=== PATIENT | male | born 1985 | race Hispanic/Latino ===

== ENCOUNTER 2016-11-13 01:13 | Day surgery (SDC) | payer OTHER ==
[~2016-11-13] VITALS: Ht 175.3 cm; Wt 88.3 kg
[2016-11-13] MEDS ORDERED: ONDANSETRON 4MG/2ML VIAL (J2405) IV ONE ×2 (01:45→12:00)
[2016-11-13] MEDS ORDERED: MORPHINE 4 MG/ML 1ML SYRINGE IV ONE (01:45)
[2016-11-13] MEDS ORDERED: IBUPOTC PO (02:30)
[2016-11-13 03:19] LABS: BASO % 0.2 % (0.0-1.0); EOS # 0.1 K/mm3 (0.0-0.50); EOS % 1.6 % (0.0-3.0); LARGE UNSTAINED CELL # 0.1 K/mm3 (0.0-0.4); LARGE UNSTAINED CELL % 0.8 % (0.0-4.0); LYMPH # 1.3 K/mm3 (1.5-6.5); LYMPH % 14.1 % (24.0-44.0); MEAN CORPUSCULAR HEMOGLOBIN 29.7 pg (27.0-33.0); MEAN CORPUSCULAR HGB CONC 31.9 g/dl (32.0-36.5); MEAN CORPUSCULAR VOLUME 93.2 fl (80.0-96.0); MONO # 0.4 K/mm3 (0.0-0.8); MONO % 4.9 % (0.0-5.0); NEUTROPHILS # 6.7 K/mm3 (1.8-7.7); NEUTROPHILS % 78.4 % (36.0-66.0); PLATELET COUNT, AUTOMATED 179 k/mm3 (150-450); RED CELL DISTRIBUTION WIDTH 12.7 % (11.5-14.5); WHITE BLOOD COUNT 8.6 K/mm3 (4.0-10.0)
[2016-11-13 03:25] LABS: INR 1.2
[2016-11-13 03:40] LABS: ANION GAP 7 MEQ/L (8-16); BLOOD UREA NITROGEN 11 MG/DL (7-18); CALCIUM LEVEL 8.3 MG/DL (8.5-10.1); CARBON DIOXIDE LEVEL 27 MEQ/L (21-32); CHLORIDE LEVEL 108 MEQ/L (98-107); CREATININE FOR GFR 0.96 MG/DL (0.70-1.30); GLOMERULAR FILTRATION RATE > 60.0 (>60); GLUCOSE, FASTING 108 MG/DL (70-105); SODIUM LEVEL 142 MEQ/L (136-145)
[2016-11-13 04:45] VITALS: BP 105/50
[2016-11-13] MEDS ORDERED: PERCOCET 5MG/325MG TAB PO ONE ×2 (06:30→17:15)
[2016-11-13] MEDS ORDERED: PERC5TAB6 PO (07:37)
[2016-11-13] MEDS ORDERED: ASPI325T PO (07:37)
[2016-11-13] MEDS ORDERED: BUPIVACAINE/EPIN 0.25% 30 ML VIAL As Ordered ONE (07:40)
--- NOTE | 2016-11-13 08:49 | REP ---
Clinical: Trauma. Technique: AP and lateral views of the left tibia / fibula. Findings: Acute spiral nondisplaced fracture of the distal fibular shaft is appreciated along with moderate diffuse swelling at the ankle and widening of the medial ankle mortise and joint space suggesting associated ligamentous injuries. Impression: Fractured distal fibular shaft. Ankle swelling and widening to the medial joint space. Signed by Alli Roberson MD 11/13/2016 08:41 A
[2016-11-13] MEDS ORDERED: MIDAZOLAM INJ 2 MG/2 ML VIAL (J2250) As Ordered ONE (08:55)
[2016-11-13] MEDS ORDERED: PROPOFOL 200 MG/20 ML VIAL As Ordered ONE (08:55)
[2016-11-13] MEDS ORDERED: ePHEDrine SULFATE 25 MG/5 ML(5MG/ML) SYRINGE As Ordered ONE (08:55)
[2016-11-13] MEDS ORDERED: LIDOCAINE 2% INJ 100 MG/5 ML SDV (FOR ANES.) As Ordered ONE (08:55)
[2016-11-13] MEDS ORDERED: fentaNYL 250 MCG/5 ML INJECTION (J3010) As Ordered ONE (08:55)
[2016-11-13] MEDS ORDERED: dexameTHASONE 4 MG/ML 1ML VIAL (J1100) As Ordered ONE (08:55)
[2016-11-13] MEDS ORDERED: ONDANSETRON 4MG/2ML VIAL (J2405) As Ordered ONE (09:08)
--- NOTE | 2016-11-13 09:18 | REP ---
Clinical: Trauma. Technique: AP, lateral, bilateral oblique views of the left foot. Findings: There is an oblique fracture of the distal fibular shaft. The foot appears intact without further acute fracture or dislocation. Impression: Oblique fracture of the distal fibula. Foot appears intact. Signed by Alli Roberson MD 11/13/2016 09:10 A
--- NOTE | 2016-11-13 10:15 | REP ---
Clinical: Fracture. Technique: Intraoperative fluoroscopic imaging. Findings: Two intraoperative fluoroscopic images demonstrate the patient to be status post open reduction and fixation for distal fibular shaft fracture. Total fluoroscopic time 1 minute 3 seconds. Impression: Status post open reduction and fixation for distal fibular shaft fracture Signed by Alli Roberson MD 11/13/2016 10:07 A
[2016-11-13] MEDS ORDERED: HYDROmorphone HCL 1 MG/ML SYRINGE (J1170) As Ordered ONE (10:36)
[2016-11-13] MEDS: HYDROmorphone HCL 1 MG/ML SYRINGE (J1170) IV PRN ×5 (10:37→10:57)
[2016-11-13] MEDS ORDERED: PERCOCET 5MG/325MG TAB PO PRN (10:45)
[2016-11-13] MEDS ORDERED: ONDANSETRON 4MG/2ML VIAL (J2405) IV PRN (10:45)
[2016-11-13] MEDS ORDERED: fentaNYL 100 MCG/2 ML INJECTION (J3010) IV PRN (10:45)
[2016-11-13] MEDS ORDERED: LR 1,000 ML IV SCH (10:45)
--- NOTE | 2016-11-13 10:58 | REP ---
Clinical: Status post fixation. Technique: Portable AP and lateral views of the left ankle. Findings: The patient is status post open reduction and fixation for distal fibular shaft fracture. Impression: Status post open reduction and fixation for distal fibular shaft fracture. Signed by Alli Roberson MD 11/13/2016 10:50 A
[2016-11-13] MEDS ORDERED: PERCOCET 5MG/325MG TAB As Ordered ONE (11:00)
[2016-11-13] MEDS ORDERED: ONDANSETRON 4 MG TAB (S0181) PO PRN (12:00)
[2016-11-13 12:06] VITALS: BP 128/68
[2016-11-13 12:49] VITALS: BP 103/54
[2016-11-13 13:20] VITALS: BP 107/58
--- NOTE | 2016-11-13 14:11 | RO ---
DATE OF PROCEDURE: 11/13/2016 PREPROCEDURE DIAGNOSIS: Left ankle fracture. POSTPROCEDURE DIAGNOSIS: Left ankle fracture. PROCEDURE: Left ankle open reduction internal fixation. SURGEON: Stef Iniguez MD HEAD SHIPPER: DERRICK Martin ANESTHESIA: General endotracheal anesthesia. TOTAL TOURNIQUET TIME: 70 minutes, 250 mmHg, left thigh. IMPLANTS USED: Synthes 10 hole 1/3 tubular plate, 3.5 x 14 mm cortex screws x 3, 3.5 x 55 mm cortex screw x 1, 3.5 x 16 mm cortex screw x 1, 4.0 x 16 mm cancellous screw x1, and 20 mm x 2.7 mm cortex screw x 1. ESTIMATED BLOOD LOSS: 20 mL. ANTIBIOTICS: 2 grams Ancef given within 1 hour of incision. COMPLICATIONS: None. INDICATION FOR PROCEDURE: Wayne Beckford is a 30-year-old male in custody of the corrections department, who sustained a twisting injury to his left ankle resulting in an unstable left Padilla C ankle fracture. Given the unstable nature of his fracture, I discussed with the patient the risks, benefits, indications, and alternatives of operative versus nonoperative treatment, and the patient elected to proceed with left ankle open reduction internal fixation. Informed consent was obtained. INTRAOPERATIVE FINDINGS: We obtained adequate length, alignment, and rotation of the fibula after fixation; however, there was still medial clear space widening after external rotation stress test, status post rotation of fibula, therefore, two quadricortical syndesmotic screws were placed. DESCRIPTION OF PROCEDURE: Patient was positively identified in the preoperative holding area, area of surgical site was marked. He was then brought to the operating room and was placed under general endotracheal anesthesia. All bony prominences were appropriately padded. Sequential compression device (SCD) was placed on the nonoperative extremity for deep venous thrombosis (DVT) prophylaxis. He was prepped and draped in the usual sterile fashion. A final time-out was performed. We made a 12 cm incision directly laterally over the fibula, dissected through the skin, subcutaneous tissue, and identified the superficial peroneal nerve, which crossed the fibula approximately 10 cm proximall to the tip of the lateral malleolus. The superficial peroneal nerve was isolated and retracted anteriorly and protected throughout the remainder of the case. Then, I identified the fracture site, obtained an anatomic reduction, then placed two 2.7 mm lag by technique screws noting anatomic reduction of the fibula. I then applied a 10-hole 1/3 tubular plate to neutralize the large length of the fracture. There was a butterfly fragment posteriorly. After placing the 1/3 tubular plate proximately and distally, we then placed three 3.5 mm cortex screws proximally and two cancellous 4.0 mm screws distally. I performed a cotton test and external rotation stress test noting medial clear space widening. Also, on the lateral view, the distal lag screw was noted to be long, and there was loss of fixation with that screw. Then, I removed the distal cancellous screws, reobtained anatomic reduction, and placed two syndesmotic screws distally. I confirmed anatomic reduction of the syndesmosis using comparative lateral view of the uninjured ankle. The distal lag screw was removed as it no longer was contributing to the construct. The proximal lag screw still had adequate fixation with maintenance of length and alignment and rotation of the fibula. After all hardware was placed, I then obtained final fluoroscopic images , and repeated the stress test, noting no significant medial clear space widening. At this point, the wound was irrigated with normal saline and closed in layers with #0 Vicryl for the fascial layer protecting the superficial peroneal nerve. Subcutaneous layer was closed with #2-0 Vicryl interrupted sutures and jeri for the skin. A sterile dressing was applied. Tourniquet was let down at 70 minutes. I was present and scrubbed in for all critical portions of the case. POSTOPERATIVE PLAN: Patient will be discharged back to correctional department custody today. He will return to the office in 10-14 days for staple removal and likely transition to a short-leg cast. He will be non weight bearing for at least 6-8 weeks to the left lower extremity. MARIKA
== END 2016-11-13 17:03 | disposition home or self-care (01) ==
LOC: EDBD 01:13 → M ED 01:58 → M OROP 03:00 → M MS5PR 04:38 → M OROP 17:03
PROVIDERS: ATTEND Orthopaedic Surgery
DX: S82.445A Nondisplaced spiral fracture of shaft of left fibula, initial encounter for closed fracture (principal); X50.0XXA Overexertion from strenuous movement or load, initial encounter; W18.49XA Other slipping, tripping and stumbling without falling, initial encounter; Y92.002 Bathroom of unspecified non-institutional (private) residence as the place of occurrence of the external cause; Y93.E1 Activity, personal bathing and showering; Y99.8 Other external cause status
CPT/HCPCS: 27792; 27829; 36415; 73590; 73600; 73610; 73630; 80048; 85025; 85610; 85730; 99284; C1776; J0690; J1100; J1170; J2250; J2405; J3010

== ENCOUNTER → 2016-11-21 | Day surgery (SDC) | payer OTHER ==
[~2016-11-21] MED LIST: ASPI325T PO; GLYCOPYRROLATE INJ 0.2 MG/ML 2 ML VIAL As Ordered ONE; HYDROmorphone HCL 1 MG/ML SYRINGE (J1170) As Ordered ONE; IBUPOTC PO; IBUPROFEN 600 MG PO; LIDOCAINE 2% INJ 100 MG/5 ML SDV (FOR ANES.) As Ordered ONE; LR 1,000 ML IV SCH; METOCLOPRAMIDE INJ 10MG/2ML VIAL (J2765) As Ordered ONE; MIDAZOLAM INJ 2 MG/2 ML VIAL (J2250) As Ordered ONE; MORPHINE 2 MG/ML 1ML SYRINGE As Ordered ONE; MORPHINE 4 MG/ML 1ML SYRINGE IV PRN; MOTR200T44 PO; NEOSTIGMINE 1MG/ML 5 ML SYRINGE (J2710) As Ordered ONE; NORCO, ANEXSIA 5/325MG TABLET (HYDROcodone/ACETAMINOPHEN) PO PRN; ONDANSETRON 4MG/2ML VIAL (J2405) As Ordered ONE; PERC5TAB6 PO; PERCOCET 5MG/325MG TAB As Ordered ONE; PERCOCET 5MG/325MG TAB PO PRN; PHENYLephrine HCL 500 MCG/5 ML (100MCG/ML) SYRINGE (J2370) As Ordered ONE; PROPOFOL 200 MG/20 ML VIAL As Ordered ONE; ROCURONIUM BROMIDE 50 MG/5 ML VIAL As Ordered ONE; SEVOFLURANE INHAL SOLN 250 ML BTL As Ordered ONE; ceFAZolin 1GM INJ (J0690) As Ordered ONE; dexameTHASONE 4 MG/ML 1ML VIAL (J1100) As Ordered ONE; fentaNYL 250 MCG/5 ML INJECTION (J3010) As Ordered ONE
[2016-11-21] MEDS: HYDROmorphone HCL 1 MG/ML SYRINGE (J1170) IV PRN ×5 (15:43→16:19)
[2016-11-21] MEDS: fentaNYL 100 MCG/2 ML INJECTION (J3010) IV PRN ×3 (16:42→17:05)
[2016-11-21 19:20] VITALS: BP 113/52
--- NOTE | 2016-11-21 22:26 | RO ---
DATE OF PROCEDURE: 11/21/2016 PREPROCEDURE DIAGNOSIS: Malreduction of a left ankle fracture with syndesmosis injury. POSTPROCEDURE DIAGNOSIS: Malreduction of a left ankle fracture with syndesmosis injury. PROCEDURE: Revision open reduction internal fixation of left fibular fracture and syndesmosis fixation. SURGEON: Dr. Pratik Davenport MULTIPLE GAMES DEALER: ANESTHESIA: General endotracheal tube anesthesia. COMPLICATIONS: None. ESTIMATED BLOOD LOSS; Less than 20 mL. DESCRIPTION OF PROCEDURE: Antibiotics were given intravenously preoperatively and successful general endotracheal tube anesthetic was established. Tourniquet placed on the left upper thigh and not inflated. The left lower extremity was prepped and draped in the usual sterile fashion and elevated. Then, after appropriate time out, the leg was elevated and the tourniquet was inflated. I first opened the previous wound and removed the Vicryl subcutaneous sutures, then opened the deep fascia and exposed the plate. At this point, a fluoroscopic image was obtained in the mortise plane, demonstrating the persistent medial widening of the medial clear space and the mortise appeared to be somewhat unstable. Therefore, I did remove the two syndesmotic screws and then the proximal three screws of the plate, and then I used a bone holding clamp as well as a secondary clamp to pull distally on the fracture construct. The push-pull device was too large to fit proximally; thus, I did a bimanual distraction and I was able to lengthen through the fracture and then clamp the plate back onto position about 1-2 mm. Then, fluoroscopic imaging at this point showed that the mortise reduced nicely just by that maneuver. So, I fixed the plate proximally by redrilling into the new holes, the proximal two plate holes using a 2.5 drill and 3.5 cortical screw. At this point, then, I turned attention to the butterfly fragment. I made sure that it would click into an anatomic position. There was some comminution medially, but clearly it was out to length based on my reduction of the butterfly fragment back in line to line anteriorly, and this was held with a clamp. Then, I turned my attention to the syndesmosis. I placed the threaded guide pin from the 4.5 cannulated screw set through the distal syndesmotic screw hole through the plate, advanced the guide pin, then drilled over it and measured, then I placed the 4.5 cannulated screw. And at first, as it closed down, it seemed to shift the distal fibular fragment. Thus, I backed that off, and I placed the guide pin into the second most proximal syndesmotic screw hole in a similar fashion by advancing the guide pin, measuring, then drilling, and then I advanced the 4.5 cannulated screw. This nicely reduced the mortise anatomically. Then, I went back and filled the other syndesmotic screw hole with a 4.5 cannulated screw, measuring appropriately. At this point then, AP mortise and lateral plane fluoroscopic imaging showed that the fracture seemed to be reduced and the fibula was out to length, and the medial clear space was no longer evident, and it was quite stable. There was no motion at the syndesmosis. I did apply another interfragmentary compression screw on the butterfly fragment from anterior to posterior, keeping it line to line and reduced, and this was filled with a 3.5 cortical screw. I then let the tourniquet down at this point, copiously irrigated all the wounds, and I made sure all the old Vicryl sutures were removed and then I closed the subdermal tissues were closed with interrupted #2-0 PDS suture and then the skin was closed with jeri. I covered the wound with Adaptic and a dry sterile bulky dressing, then a short-leg well-padded plaster cast was applied. Then, he was awakened from general endotracheal tube anesthesia after having tolerated the procedure well, transferred to the recovery room in stable condition. There were no intraoperative complications.
--- NOTE | 2016-11-22 07:20 | REP ---
Left ankle intraoperative fluoroscopic views: A series of four views are performed. There is internal fixation with a fibular side plate and multiple orthopedic screws. The final view reveals the side plate, however, all of the side plate, screws have been removed. There is a single remaining screw across the fibular fracture line. The mortise appears symmetric. Fluoroscopic exposure time is 47 seconds. Fluoroscopic images are performed with last image hold technology. These images require no additional radiation. Signed by Jerome Padilla MD 11/21/2016 03:18 P
== END | disposition home or self-care (01) ==
LOC: M SDC 10:41
PROVIDERS: ATTEND Orthopaedic Surgery
DX: S82.92 Unspecified fracture of left lower leg (principal); F17.210 Nicotine dependence, cigarettes, uncomplicated
CPT/HCPCS: 27784; 27829; 73610; C1713; J0690; J1100; J1170; J2250; J2370; J2405; J2710; J2765; J3010

== ENCOUNTER → 2017-01-30 | Outpatient (CLI) | payer OTHER ==
[~2017-01-30] MED LIST changes: -GLYCOPYRROLATE INJ 0.2 MG/ML 2 ML VIAL As Ordered ONE; -HYDROmorphone HCL 1 MG/ML SYRINGE (J1170) As Ordered ONE; -LIDOCAINE 2% INJ 100 MG/5 ML SDV (FOR ANES.) As Ordered ONE; -LR 1,000 ML IV SCH; -METOCLOPRAMIDE INJ 10MG/2ML VIAL (J2765) As Ordered ONE; -MIDAZOLAM INJ 2 MG/2 ML VIAL (J2250) As Ordered ONE; -MORPHINE 2 MG/ML 1ML SYRINGE As Ordered ONE; -MORPHINE 4 MG/ML 1ML SYRINGE IV PRN; -NEOSTIGMINE 1MG/ML 5 ML SYRINGE (J2710) As Ordered ONE; -NORCO, ANEXSIA 5/325MG TABLET (HYDROcodone/ACETAMINOPHEN) PO PRN; -ONDANSETRON 4MG/2ML VIAL (J2405) As Ordered ONE; -PERCOCET 5MG/325MG TAB As Ordered ONE; -PERCOCET 5MG/325MG TAB PO PRN; -PHENYLephrine HCL 500 MCG/5 ML (100MCG/ML) SYRINGE (J2370) As Ordered ONE; -PROPOFOL 200 MG/20 ML VIAL As Ordered ONE; -ROCURONIUM BROMIDE 50 MG/5 ML VIAL As Ordered ONE; -SEVOFLURANE INHAL SOLN 250 ML BTL As Ordered ONE; -ceFAZolin 1GM INJ (J0690) As Ordered ONE; -dexameTHASONE 4 MG/ML 1ML VIAL (J1100) As Ordered ONE; -fentaNYL 250 MCG/5 ML INJECTION (J3010) As Ordered ONE
--- NOTE | 2017-01-31 01:27 | REP ---
Clinical: History of ankle fracture. Technique: AP, lateral, bilateral oblique views of the left ankle. Comparison: 11/21/2016. Findings: Status post distal left fibula shaft fracture with orthopedic hardware in stable and satisfactory position. Mild overlying soft tissue swelling is appreciated. Very minimal callus formation is identified at the fracture site. No new acute fracture dislocation. Impression: Relatively stable appearance to the fracture site and orthopedic hardware. Signed by Alli Roberson MD 01/31/2017 01:19 A
== END ==
LOC: M RAD 09:26
PROVIDERS: ATTEND Surgery
DX: S82.892A Other fracture of left lower leg, initial encounter for closed fracture (principal); X58.XXXA Exposure to other specified factors, initial encounter; Y92.89 Other specified places as the place of occurrence of the external cause; Y93.89 Activity, other specified; Y99.8 Other external cause status

== ENCOUNTER → 2017-07-19 | Outpatient (CLI) | payer OTHER ==
[~2017-07-19] MED LIST changes: +PERC5TAB12 PO; -PERC5TAB6 PO
--- NOTE | 2017-07-19 10:55 | REP ---
Clinical: Pain. Technique: AP, lateral, bilateral oblique views of the left ankle. Comparison: 01/30/2017. Findings: No acute fracture or dislocation. The patient is status post open reduction and fixation for distal fibular shaft fracture. Orthopedic hardware is in stable satisfactory position. Ankle mortise is intact. Surrounding soft tissues are grossly unremarkable. Impression: Status post open reduction and fixation appears stable and within normal limits. No acute fracture dislocation. Ankle mortise intact. No significant degenerative changes. Signed by Alli Roberson MD 07/19/2017 10:47 A
== END ==
LOC: M RAD 09:32
PROVIDERS: ATTEND Surgery
DX: M25.572 Pain in left ankle and joints of left foot (principal)